=== PATIENT | female | born 1985 | race African-American/Black ===

== ENCOUNTER → 2024-01-31 08:40 | Outpatient (REF) | payer SELFPAY ==
[2024-01-31 10:03] LABS: Erythrocyte Sed Rate 25 mm/hour (0-20)
[2024-01-31 10:52] LABS: Draw Blood Only DBO
[2024-01-31 10:59] LABS: ALT (SGPT) 14 U/L (0-35); AST (SGOT) 23 U/L (14-36); Albumin 4.2 g/dl (3.5-5.0); Alkaline Phosphatase 56 U/L (38-126); Blood Urea Nitrogen 14 mg/dl (7-17); Calcium 9.9 mg/dl (8.4-10.2); Carbon Dioxide 25 mmol/L (22-30); Chloride 103 mmol/L (98-107); Glucose 73 mg/dl (70-99); Sodium 139 mmol/L (135-145); Total Bilirubin 0.6 mg/dl (0.2-1.3); Total Protein 7.6 g/dl (6.3-8.2); eGFR > 60.00
[2024-01-31 13:35] LABS: Rheumatoid Agglutinin Less Than 10 IU (<10 IU)
[2024-02-02 10:20] LABS: CCP Antibody IgG/IgA 4 Units (0-19)
[2024-02-02 11:17] LABS: Smith/RNP (ENA), IgG 3 Units (0-19)
[2024-02-02 18:04] LABS: SSA 52 (Ro)(ENA) Ab, IgG 8 AU/mL (0-40); SSA 60 (Ro)(ENA) Ab, IgG 3 AU/mL (0-40); SSB (La)(ENA) Ab, IgG 3 AU/mL (0-40)
== END ==
LOC: REG 08:40
DX: D72.828 Other elevated white blood cell count (principal); R76.0 Raised antibody titer; E28.8 Other ovarian dysfunction
CPT/HCPCS: 36415; 80053; 85652; 86200; 86235; 86430